=== PATIENT | male | born 1990 | race Caucasian/White ===

== ENCOUNTER 2017-12-13 05:52 | Emergency (ER) | payer SELFPAY ==
[~2017-12-13] VITALS: Ht 188 cm; Wt 83.9 kg
[2017-12-13 05:52] VITALS: BP 149/79
--- NOTE | 2017-12-13 05:52 | NUR ---
PT BIB [facility], PREBOOK. TAKEN TO BED 10
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
--- NOTE | 2017-12-13 05:59 | NUR ---
Dr. Pitts evaluating patient at bedside.
[2017-12-13 06:15] VITALS: BP 137/81
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
== END 2017-12-13 06:15 ==
LOC: MED 05:52
DX: S50.311A Abrasion of right elbow, initial encounter (principal); S00.81XA Abrasion of other part of head, initial encounter; V69.9XXA Occupant (driver) (passenger) of heavy transport vehicle injured in unspecified traffic accident, initial encounter; Y93.89 Activity, other specified; Y92.410 Unspecified street and highway as the place of occurrence of the external cause; Y99.8 Other external cause status
CPT/HCPCS: 99283